=== PATIENT | female | born 1985 | race Caucasian/White ===

== ENCOUNTER → 2016-08-21 | Outpatient (CLI) | payer BC | LOC: OD 17:15 | PROVIDERS: ATTEND Physician Assistant | DX: L40.0 Psoriasis vulgaris (principal) | CPT/HCPCS: 36415; 80074 ==

== ENCOUNTER 2016-10-07 07:59 | Day surgery (SDC) | payer BC ==
[~2016-10-07 07:59] MED LIST: PROPOFOL INJ 200 MG/20 ML VIAL IV ONE
[2016-10-07 09:44] VITALS: BP 94/70
--- NOTE | 2016-10-07 14:34 | Operative Report ---
Operative Report DATE OF SURGERY: 10/07/16 Operative Report: The risks, benefits and alternatives of the procedure including risks of bleeding, perforation requiring surgery are explained to the patient detail and informed consent is obtained. Patient is placed in a left, lateral decubital position. Timeout is called. Propofol medications administered. A rectal examination is done which did not reveal any masses, tears or fissures. An Olympus videoscope this inserted into the patient's rectum. Scope was then gradually advanced all the way to the cecum. The cecum was identified by the usual anatomical landmarks including the ileocecal valve as well as appendiceal office. Photodocumentation is obtained. Prep is good. The scope was then sequentially pulled back out via the rest segments of the colon including the ascending colon, hepatic flexure, transverse colon, splenic flexure, descending colon and finally into the rectosigmoid portions of the colon. Retroflexion maneuvers performed. PREOPERATIVE DIAGNOSIS: Rectal bleeding. POSTOPERATIVE DIAGNOSIS: Internal hemorrhoids. Mild right-sided mucosal inflammation status post biopsy OPERATION: Colonoscopy with biopsy SURGEON: RAFAEL ROSS ANESTHESIA: LMAC TISSUE REMOVED OR ALTERED: Right-sided colon specimens COMPLICATIONS: None. ESTIMATED BLOOD LOSS: none INTRAOPERATIVE FINDINGS: As described above. PROCEDURE: Patient tolerated the procedure well. No immediate postprocedure complications are noted. Patient discharged in good condition. Discharge date 10/07/2016. Discharge diet: Regular. Discharge activity: Regular. 2-3 week follow-up to discuss findings. We'll await pathology. Patient is instructed to call the office or proceed to the emergency room should there be any further problems or questions.
== END 2016-10-07 09:40 | disposition home or self-care (01) ==
LOC: END 07:59
PROVIDERS: ATTEND Internal Medicine Gastroenterology
PROC: 0DBF8ZX Excision of Right Large Intestine, Via Natural or Artificial Opening Endoscopic, Diagnostic (ICD-10-PCS; principal; 2016-10-07 09:30)
DX: K52.9 Noninfective gastroenteritis and colitis, unspecified (principal); K64.8 Other hemorrhoids; K62.5 Hemorrhage of anus and rectum; I10 Essential (primary) hypertension; E66.9 Obesity, unspecified; J30.2 Other seasonal allergic rhinitis; Z88.8 Allergy status to other drugs, medicaments and biological substances; Z68.41 Body mass index [BMI] 40.0-44.9, adult; Z79.899 Other long term (current) drug therapy; Z98.84 Bariatric surgery status
CPT/HCPCS: 45380; 88305 ×2; J2704; 810

== ENCOUNTER 2018-01-03 13:21 | Emergency (ER) | payer BC ==
--- NOTE | 2018-01-03 13:55 | ER Document Report ---
ED General - General Chief Complaint: Skin Problem Stated Complaint: POST OP COMPLICATIONS Time Seen by Provider: 01/03/18 13:26 Notes: 32-year-old female patient who is 3 days postop from bariatric surgery sleeve gastrectomy complaining of pain in her right upper extremity. IV was in the right upper extremity. States that her right arm is more painful than her operative site in her abdomen. Noticed that there was some asymmetry in the arm and it seemed to be red and swollen. Denies any fever or chills. No chest pain or shortness of breath. No history of DVT or PE. Did receive Lovenox shots while in the hospital. Patient does endorse that her brother had a blood clot but does not know why. Patient denies any leg pain or swelling. Has not passed gas since the surgery but does not have any abdominal pain or bloating. On a liquid diet. Took her Lortab elixir prior to arrival. TRAVEL OUTSIDE OF THE [place] IN LAST 30 DAYS: No - HPI Onset: Yesterday Onset/Duration: Gradual, Worse Quality of pain: Achy, Throbbing Severity: Moderate Pain Level: 3 - Related Data Allergies/Adverse Reactions: promethazine HCl [From Phenergan] Allergy (Severe, Verified 10/07/16 08:00) itching, burning in vein, hives Past Medical History - General Information source: Patient - Social History Smoking Status: Never Smoker Frequency of alcohol use: None Drug Abuse: None Lives with: Spouse/Significant other Family History: Reviewed & Not Pertinent Patient has suicidal ideation: No Patient has homicidal ideation: No - Past Medical History Cardiac Medical History: Reports: Hx Hypertension Denies: Hx Coronary Artery Disease, Hx Heart Attack Pulmonary Medical History: Reports: Hx Asthma - As a child Denies: Hx Bronchitis, Hx COPD, Hx Pneumonia Neurological Medical History: Denies: Hx Cerebrovascular Accident, Hx Seizures Renal/ Medical History: Denies: Hx Peritoneal Dialysis Musculoskeletal Medical History: Denies Hx Arthritis Psychiatric Medical History: Reports: Hx Depression Past Surgical History: Reports: Hx Abdominal Surgery - ABDOMINOPLASTY 2007. LAP BAND SURGERY 2011.. Denies: Hx Hysterectomy, Hx Pacemaker - Immunizations Hx Diphtheria, Pertussis, Tetanus Vaccination: Yes Review of Systems - Review of Systems Constitutional: denies: Fever, Malaise, Weakness EENT: denies: Throat pain, Difficulty swallowing, Throat swelling, Mouth pain Cardiovascular: denies: Chest pain, Palpitations, Heart racing, Syncope, Dizziness, Lightheaded, Edema Respiratory: denies: Cough, Hurts to breathe, Hemoptysis, Short of breath, Wheezing Gastrointestinal: Abdominal pain. denies: Diarrhea, Nausea, Vomiting Musculoskeletal: See HPI, Other - Right arm pain, right arm swelling. denies: Back pain Skin: Other - Redness to the right upper extremity. denies: Dryness, Lesions Hematologic/Lymphatic: denies: Anemia, Blood clots, Easy bleeding, Easy bruising Neurological/Psychological: denies: Confusion, Weakness, Numbness Physical Exam - Vital signs Vitals: Temp Pulse Resp BP Pulse Ox 99.0 F 71 16 124/74 95 01/03/18 13:30 01/03/18 13:30 01/03/18 13:30 01/03/18 13:30 01/03/18 13:30 Interpretation: Normal - General General appearance: Appears well, Alert - HEENT Head: Normocephalic, Atraumatic Eyes: Normal Pupils: PERRL - Respiratory Respiratory status: No respiratory distress Chest status: Nontender Breath sounds: Normal Chest palpation: Normal - Cardiovascular Rhythm: Regular Heart sounds: Normal auscultation Murmur: No - Extremities General upper extremity: Other - There is some mild erythema noted to the right upper extremity of the forearm and humerus area extending up to the shoulder. There is no obvious lymphangitic streaking. There is some mild tenderness to touch in the right arm General lower extremity: Normal inspection, Nontender, Normal color, Normal ROM , Normal temperature, Normal weight bearing. No: Ike's sign Course - Re-evaluation Re-evalutation: 01/03/18 13:59 At this time the possibility of DVT exists being that she had an IV in his right upper extremity. We will get some basic labs including CBC chemistry and coags. Will get ultrasound of the right upper extremity reassess. Not requiring pain medication at this time. - Vital Signs Vital signs: Temp Pulse Resp BP Pulse Ox 99.0 F 71 16 124/74 95 01/03/18 13:30 01/03/18 13:30 01/03/18 13:30 01/03/18 13:30 01/03/18 13:30 Discharge - Discharge Referrals: TIFFANI,KAVITHA, PA-C [Primary Care Provider] - Follow up as needed
[2018-01-03 14:24] LABS: ABSOLUTE BASOPHILS # (AUTO) 0.1 10^3/uL (0.0-0.2); ABSOLUTE EOSINOPHILS # (AUTO) 0.4 10^3/uL (0.0-0.6); ABSOLUTE LYMPHOCYTES (AUTO) 2.2 10^3/uL (0.5-4.7); ABSOLUTE NEUT (AUTO) 8.5 10^3/uL (1.7-8.2); BASOPHILS % (AUTO) 0.6 % (0-2); EOSINOPHILS % (AUTO) 3.1 % (0-6); HEMATOCRIT 39.5 % (36.0-47.0); HEMOGLOBIN 13.3 g/dL (12.0-15.5); LYMPHOCYTES % (AUTO) 17.9 % (13-45); MEAN CORPUSCULAR HEMOGLOBIN 28.1 pg (27.0-33.4); MEAN CORPUSCULAR HGB CONC 33.7 g/dL (32.0-36.0); MEAN CORPUSCULAR VOLUME 83 fl (80-97); MONOCYTES % (AUTO) 8.5 % (3-13); PLATELET COUNT 255 10^3/uL (150-450); RED BLOOD COUNT 4.73 10^6/uL (3.72-5.28); RED CELL DISTRIBUTION WIDTH 14.2 % (11.5-14.0); SEGMENTED NEUTROPHILS % (AUTO) 69.9 % (42-78); TOTAL CELLS COUNTED % (AUTO) 100 %; WHITE BLOOD COUNT 12.2 10^3/uL (4.0-10.5)
[2018-01-03] MEDS ORDERED: MORPHINE SULFATE 10 MG/ML INJ IV ONE ×2 (14:25→17:38)
[2018-01-03] MEDS ORDERED: ONDANSETRON HCL INJ/PF 4 MG/2 ML SDV IV ONE (14:25)
--- NOTE | 2018-01-03 14:33 | ER Document Report ---
ED General - General Chief Complaint: Skin Problem Stated Complaint: POST OP COMPLICATIONS Time Seen by Provider: 01/03/18 13:26 Mode of Arrival: Ambulatory Information source: Patient Notes: This is a 32-year-old female with a history of hypertension status post laparoscopic-assisted sleeve gasectomy 2 days ago (discharged yesterday from Dr Hali Kmi) who presents to the emergency room with pain to the right arm. This is the extremity where she had an IV (right dorsal hand). She denies fever. She feels that the arm is a little bit more red and swollen compared to the opposite side. She does complain of tenderness to the touch. Medications: Narcotic elixir, lisinopril (which is being held). Diet: Protein shakes for the next 2 weeks TRAVEL OUTSIDE OF THE [place] IN LAST 30 DAYS: No - HPI Onset: Yesterday Onset/Duration: Gradual Quality of pain: Dull Severity: Moderate Pain Level: 2 Associated symptoms: denies: Chest pain, Fever, Shortness of breath Exacerbated by: Movement Relieved by: Remaining still Similar symptoms previously: No Recently seen / treated by doctor: Yes - Related Data Allergies/Adverse Reactions: promethazine HCl [From Phenergan] Allergy (Severe, Verified 10/07/16 08:00) itching, burning in vein, hives Past Medical History - General Information source: Patient - Social History Smoking Status: Never Smoker Cigarette use (# per day): No Chew tobacco use (# tins/day): No Frequency of alcohol use: None Drug Abuse: None Lives with: Spouse/Significant other Family History: Reviewed & Not Pertinent Patient has suicidal ideation: No Patient has homicidal ideation: No - Past Medical History Cardiac Medical History: Reports: Hx Hypertension Denies: Hx Coronary Artery Disease, Hx Heart Attack Pulmonary Medical History: Reports: Hx Asthma - As a child Denies: Hx Bronchitis, Hx COPD, Hx Pneumonia Neurological Medical History: Denies: Hx Cerebrovascular Accident, Hx Seizures Renal/ Medical History: Denies: Hx Peritoneal Dialysis Musculoskeletal Medical History: Denies Hx Arthritis Psychiatric Medical History: Reports: Hx Depression Past Surgical History: Reports: Hx Abdominal Surgery - ABDOMINOPLASTY 2007. LAP BAND SURGERY 2011.. Denies: Hx Hysterectomy, Hx Pacemaker - Immunizations Hx Diphtheria, Pertussis, Tetanus Vaccination: Yes Review of Systems - Review of Systems Constitutional: denies: Chills, Fever EENT: No symptoms reported Cardiovascular: No symptoms reported Respiratory: No symptoms reported Gastrointestinal: See HPI Genitourinary: No symptoms reported Female Genitourinary: No symptoms reported Musculoskeletal: See HPI Skin: See HPI Hematologic/Lymphatic: No symptoms reported Neurological/Psychological: No symptoms reported Physical Exam - Vital signs Vitals: Temp Pulse Resp BP Pulse Ox 99.0 F 71 16 124/74 95 01/03/18 13:30 01/03/18 13:30 01/03/18 13:30 01/03/18 13:30 01/03/18 13:30 Notes: Physical exam: GENERAL: 32-year-old female, alert and oriented 3, no acute distress, lying in stretcher HEAD: Atraumatic, normocephalic. EYES: Pupils equal round and reactive to light, extraocular movements intact, sclera anicteric, conjunctiva are normal. ENT: TMs normal, nares patent, oropharynx clear without exudates. Moist mucous membranes. NECK: Normal range of motion, supple without obvious mass or JVD. LUNGS: Breath sounds clear to auscultation bilaterally and equal. No wheezes rales or rhonchi. HEART: Regular rate and rhythm without murmurs, rubs or gallops. ABDOMEN: Normoactive bowel sounds. Multiple laparoscopy sites which are dry and intact and have no evidence of infection. Patient's abdomen is soft and nontender. The skin shows no evidence of overlying erythema or warmth. EXTREMITIES: The patient has mild erythema to the extremity from the hand (it is difficult to see for sure even in good light). Patient does have an IV site (fr on the dorsal aspectom [employer]) of the right hand. There is no swelling or pus drainage from this. Patient does have tenderness to palpation in the antecubital and axilla. There is no obvious lymphangitic lines. There is no fluctuance or tightness in any of the extremity. But she does have tenderness to palpation along the forearm and arm. The patient's neck and area above the clavicle is nontender and there are no masses and no skin changes. NEUROLOGICAL: Cranial nerves II through XII grossly intact. Normal speech, moving all extremities. PSYCH: Normal mood, normal affect. SKIN: Warm, Dry, normal turgor, no rashes or lesions noted. Course - Re-evaluation Re-evalutation: 01/03/18 19:02 Discussed with the technician plant and maintenance: Venous Dopplers showed no evidence of DVT. Patient was given some pain medicine and IV antibiotics while in the ER. I did discuss the case with Dr. Acosta who is covering for Dr. Lal ([phone]). He felt the symptoms were consistent with a postoperative phlebitis and recommended ibuprofen. He stated that it should not be a problem given the particular surgery she has had. Patient has remained afebrile in the emergency room. I have discussed the plan with her and she is okay with it. We will send her home with some cephalexin as well. She has requested a liquid antibiotic to go home with. 01/03/18 19:10 - Vital Signs Vital signs: Temp Pulse Resp BP Pulse Ox 98.9 F 65 18 135/77 H 96 01/03/18 17:46 01/03/18 18:22 01/03/18 18:22 01/03/18 18:22 01/03/18 18:22 - Laboratory Result Diagrams: 01/03/18 14:00 01/03/18 14:00 Laboratory results interpreted by me: 01/03/18 14:00 WBC 12.2 H RDW 14.2 H Absolute Neutrophils 8.5 H - Diagnostic Test Radiology reviewed: Image reviewed, Reports reviewed - This Dopplers she no evidence of DVT Discharge - Discharge Clinical Impression: Postoperative phlebitis right upper extr Condition: Stable Disposition: HOME, SELF-CARE Additional Instructions: Recommendations: As we discussed, the venous Doppler ultrasound showed no evidence of venous clot. You did receive IV antibiotics in the emergency room for possible early infection. I did speak to Dr. Acosta) (who is covering for Dr. Lal) who felt the symptoms were probably from a phlebitis which is inflammation of the superficial vessels. He recommended taking ibuprofen ([id number]) every 6 hours for the next few days. The ibuprofen [id number] she did not be any problem given the surgery you had (as per Dr. Acosta). Call Dr. Lal's office on Friday for an appointment. Tell them you were in the emergency room for arm pain in the ER doctor wanted to be evaluated. In the meantime, return to the emergency room for fever (temperature greater than 100.5), worsening pain, worsening redness or any concerns getting worse. 10 you with your pain medicine regimen. Prescriptions: Cephalexin 10 ml PO Q6 5 Days #200 susp.recon Referrals: KAVITHA NIXON PA-C [Primary Care Provider] - Follow up as needed
[2018-01-03 14:39] LABS: INTERNATIONAL RATION (INR) 0.95; PROTHROMBIN TIME 13.1 SEC (11.4-15.4)
[2018-01-03 14:40] LABS: PARTIAL THROMBOPLASTIN TIME 28.5 SEC (23.5-35.8)
[2018-01-03 14:46] LABS: ALANINE AMINOTRANSFERASE 47 U/L (9-52); ALBUMIN 4.6 g/dL (3.5-5.0); ALKALINE PHOSPHATASE 50 U/L (38-126); ANION GAP 12 (5-19); ASPARTATE AMINO TRANSFERASE 21 U/L (14-36); BILIRUBIN,DIRECT 0.3 mg/dL (0.0-0.4); BILIRUBIN,TOTAL 0.6 mg/dL (0.2-1.3); BLOOD UREA NITROGEN 12 mg/dL (7-20); CALCIUM 9.4 mg/dL (8.4-10.2); CARBON DIOXIDE 27 mmol/L (22-30); CHLORIDE 104 mmol/L (98-107); GLUCOSE 94 mg/dL (75-110); POTASSIUM 4.2 mmol/L (3.6-5.0); SODIUM 143.2 mmol/L (137-145); TOTAL PROTEIN 7.5 g/dL (6.3-8.2)
[2018-01-03] MEDS ORDERED: PIPERACILLIN/TAZOBACTAM 3.375 GM VIAL IV ONE (16:12)
[2018-01-03 18:33] VITALS: BP 135/77
[2018-01-03] MEDS ORDERED: KETOROLAC TROMETHAMINE INJ/PF 30 MG/1 ML SDV IV ONE (18:41)
--- NOTE | 2018-01-04 15:06 | XCELERA REPORT ---
[address] [address] Upper Extremity Venous Evaluation Name: AUNDREA PITT Age: 32 yrs Gender: Female : 1985 Patient Status: Emergency Patient Location: ER Study Date: 01/03/2018 03:18 PM Procedure: Unilateral duplex scan of the right upper extremity veins was performed, including responses to compression and other maneuvers. Reason For Study: pain and swelling Ordering Physician: LILIA RICO Performed By: Ming Berg Right Side Venous Evaluation Normal vessel filling wall to wall, compression and augmentation as well as Colour flow down to the forearm veins. Interpretation Summary Normal compression, patency, spontaneous and phasic flow of the right upper extremity veins. : LILIA RICO > Reji Pollard
== END 2018-01-03 19:20 | disposition home or self-care (01) ==
LOC: ER 13:21
DX: T81.72XA Complication of vein following a procedure, not elsewhere classified, initial encounter (principal); I80.8 Phlebitis and thrombophlebitis of other sites; Y83.8 Other surgical procedures as the cause of abnormal reaction of the patient, or of later complication, without mention of misadventure at the time of the procedure; Z98.84 Bariatric surgery status; I10 Essential (primary) hypertension; Z88.8 Allergy status to other drugs, medicaments and biological substances
CPT/HCPCS: 96376; 99284; 96375; 96365; 36415; 85025; 85610; 85730; 80053; 93971 ×2; J1885; J2270; J2405; J2543